=== PATIENT | male | born 1995 | race Two or more races ===

== ENCOUNTER 2017-03-26 00:05 | Emergency (ER) | payer MEDICAID ==
[~2017-03-26] VITALS: Ht 182.9 cm; Wt 56.7 kg
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
--- NOTE | 2017-03-26 00:25 | NUR ---
XRAY AT BEDSIDE
--- NOTE | 2017-03-26 01:06 | NUR ---
Dana romero in [facility] - 03/26/[address] IZQUIERDO AT [facility].
--- NOTE | 2017-03-26 01:06 | NUR ---
DR. IZQUIERDO AT BEDSIDE SPEAKING TO PT REGARDING RESULTS
--- NOTE | 2017-03-26 01:10 | NUR ---
Patient discharged to home in stable condition. Written and verbal after care instructions given. Patient verbalizes understanding of instruction. ambulatory with a steady gait
[2017-03-26 01:11] VITALS: BP 128/86
== END 2017-03-26 01:12 | disposition home or self-care (01) ==
LOC: ER 00:07
DX: S09.90XA Unspecified injury of head, initial encounter (principal); S80.12XA Contusion of left lower leg, initial encounter; F17.200 Nicotine dependence, unspecified, uncomplicated; V43.52XA Car driver injured in collision with other type car in traffic accident, initial encounter; Y93.89 Activity, other specified; Y92.89 Other specified places as the place of occurrence of the external cause; Y99.9 Unspecified external cause status
CPT/HCPCS: 73590; 99284; A4606; Z7610

== ENCOUNTER 2018-08-28 14:02 | Emergency (ER) | payer MEDICAID ==
[~2018-08-28] VITALS: Ht 182.9 cm; Wt 58.1 kg
[2018-08-28 14:02] VITALS: BP 124/82
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
[2018-08-28] MEDS ORDERED: ONDANSETRON 4 MG TAB.RAPDIS PO ONE (14:30)
[2018-08-28] MEDS ORDERED: ONDANSETRON 4 MG TAB.RAPDIS ONE (14:38)
--- NOTE | 2018-08-28 14:44 | NUR ---
Patient discharged to home in stable condition. Written and verbal after care instructions given. Patient verbalizes understanding of instruction.
== END 2018-08-28 14:46 | disposition home or self-care (01) ==
LOC: ER 14:02
DX: A08.4 Viral intestinal infection, unspecified (principal); F17.200 Nicotine dependence, unspecified, uncomplicated
CPT/HCPCS: 99283; A4606; Q0162; Z7610